=== PATIENT | male | born 1970 | race Caucasian/White ===

== ENCOUNTER 2016-06-03 18:22 | Emergency (ER) | payer OTHER ==
[2016-06-03] MEDS ORDERED: IBUPROFEN 800 MG TABLET PO ONE (18:59)
--- NOTE | 2016-06-03 18:59 | ER Document Report ---
ED Medical Screen (RME) - General Chief Complaint: Back Pain Stated Complaint: BACK PAIN Time seen by provider: 18:57 Mode of Arrival: Ambulatory Information source: Patient Notes: 46-year-old male presents to ED for severe back pain lower back for a couple months now. States the pain the beginning was in his tailbone area and now he' s having spasms in his lower back. Denies any injuries or falls. Denies loss control of bowel or bladder. I have greeted and performed a rapid initial assessment of this patient. A comprehensive ED assessment and evaluation of the patient, analysis of test results and completion of medical decision making process will be conducted by an additional ED providers. TRAVEL OUTSIDE OF THE [place] IN LAST 30 DAYS: No - Related Data Allergies/Adverse Reactions: aspirin Allergy (Intermediate, Verified 11/02/15 11:51) lethargy,vomiting Past Medical History - Past Medical History Cardiac Medical History: Denies: Hx Coronary Artery Disease, Hx Heart Attack, Hx Hypertension Pulmonary Medical History: Denies: Hx Asthma, Hx Bronchitis, Hx COPD, Hx Pneumonia Neurological Medical History: Denies: Hx Cerebrovascular Accident, Hx Seizures Musculoskeltal Medical History: Reports Hx Arthritis - low back,knees - Immunizations Immunizations up to date: No Hx Diphtheria, Pertussis, Tetanus Vaccination: Yes Physical Exam - Vital signs Vitals: Temp Pulse Resp BP Pulse Ox 98.2 F 55 L 16 133/87 H 98 06/03/16 18:48 06/03/16 18:48 06/03/16 18:48 06/03/16 18:48 06/03/16 18:48 Course - Vital Signs Vital signs: Temp Pulse Resp BP Pulse Ox 98.2 F 55 L 16 133/87 H 98 06/03/16 18:48 06/03/16 18:48 06/03/16 18:48 06/03/16 18:48 06/03/16 18:48
[2016-06-03 20:29] VITALS: BP 125/79
--- NOTE | 2016-06-03 20:30 | ER Document Report ---
HPI - HPI Patient complains to provider of: lower back pain Pain Level: 5 Context: Patient is a 46-year-old male that comes emergency department for chief complaint of pain in his lower back worse on the right side, he states he feels like he is having muscle spasms, symptoms started this morning after he got out of bed. Patient has had history of herniated disks in his had an MRI with the [place] before. Patient states he was given an appointment on June 22 with the [place] [facility] and therefore came to the emergency department. He denies any focal numbness or weakness, bowel or bladder incontinence, urinary retention, fever. Patient takes tramadol for pain. - DERM Skin Color: Normal Past Medical History - General Information source: Patient - Social History Smoking Status: Never Smoker Lives with: Family Family History: Reviewed & Not Pertinent Patient has suicidal ideation: No Patient has homicidal ideation: No - Past Medical History Cardiac Medical History: Denies: Hx Coronary Artery Disease, Hx Heart Attack, Hx Hypertension Pulmonary Medical History: Denies: Hx Asthma, Hx Bronchitis, Hx COPD, Hx Pneumonia Neurological Medical History: Denies: Hx Cerebrovascular Accident, Hx Seizures Renal/ Medical History: Denies: Hx Peritoneal Dialysis Musculoskeltal Medical History: Reports Hx Arthritis - low back,knees Surgical Hx: Negative - Immunizations Immunizations up to date: No Hx Diphtheria, Pertussis, Tetanus Vaccination: Yes Vertical Provider Document - CONSTITUTIONAL General Appearance: WD/WN, No Apparent Distress - INFECTION CONTROL TRAVEL OUTSIDE OF THE [place] IN LAST 30 DAYS: No COUNTRY TRAVELED TO/FROM: [facility] - NECK Neck: Normal Inspection - RESPIRATORY Respiratory: Breath Sounds Normal O2 Sat by Pulse Oximetry: 98 - CARDIOVASCULAR Cardiovascular: Regular Rate, Regular Rhythm - GI/ABDOMEN Gastrointestinal: Abdomen Soft, Abdomen Non-Tender - MUSCULOSKELETAL/EXTREMETIES Musculoskeletal/Extremeties: Tender - Patient is tender in the right paralumbar musculature with tight muscle cords and mildly painful rotation, flexion, extension of the back. No midline tenderness, no saddle anesthesia, patient ambulates with only slight difficulty, normal strength and distal neurovascular exam. Course - Re-evaluation Re-evalutation: No concerning deficits, patient has slight limp and painful muscle spasm which he has already been thoroughly evaluated for, patient has pending appointment with his primary, patient will be treated with Valium for the tight muscle fibers found on exam, discussed return precautions. Patient states understanding and agreement. - Vital Signs Vital signs: Temp Pulse Resp BP Pulse Ox 98.2 F 55 L 16 133/87 H 98 06/03/16 18:58 06/03/16 18:58 06/03/16 18:58 06/03/16 18:58 06/03/16 18:58 Discharge - Discharge Clinical Impression: Lower back pain Qualifiers: Chronicity: acute Back pain laterality: right Sciatica presence: without sciatica Qualified Code(s): M54.5 - Low back pain Condition: Stable Disposition: HOME, SELF-CARE Additional Instructions: No acute abnormalities are seen either x-ray. Take the Valium as directed for muscle spasm, apply heat to the area, and rest. [facility] Return to the emergency department for any concerning or worsening symptoms. Prescriptions: Diazepam [Valium 5 mg Tablet] 1 - 2 tab PO TID PRN #15 tablet PRN Reason: Forms: Return to Work
== END 2016-06-03 20:33 | disposition home or self-care (01) ==
LOC: ER 18:22
DX: M54.5 Low back pain (principal)
CPT/HCPCS: 72110; 99283